=== PATIENT | male | born 1965 | race Caucasian/White ===

== ENCOUNTER 2018-12-12 11:35 | Outpatient (CLI) | payer OTHER ==
[~2018-12-12 11:35] MED LIST: GLIPIZIDE10 MG
== END 2018-12-12 13:44 | disposition home or self-care (01) ==
LOC: EKG 11:35
DX: I10 Essential (primary) hypertension (principal)

== ENCOUNTER 2020-10-25 13:22 | Outpatient (CLI) | payer OTHER | END 2020-10-25 13:27 | disposition home or self-care (01) | LOC: SONOGRAMA 13:22 | PROVIDERS: ATTEND Specialist/Technologist, Other Nephrology | DX: Q61.02 Congenital multiple renal cysts (principal); R10.84 Generalized abdominal pain; R31.29 Other microscopic hematuria ==

== ENCOUNTER 2020-11-18 12:30 | Outpatient (CLI) | payer OTHER | END 2020-11-18 12:33 | disposition home or self-care (01) | LOC: RAD 12:30 | PROVIDERS: ATTEND Ophthalmology | DX: I10 Essential (primary) hypertension (principal); H25.011 Cortical age-related cataract, right eye; Z98.41 Cataract extraction status, right eye ==

== ENCOUNTER 2020-11-18 15:25 | Outpatient (CLI) | payer OTHER | END 2020-11-18 15:29 | disposition home or self-care (01) | LOC: LAB 15:25 | PROVIDERS: ATTEND Specialist | DX: R05 Cough (principal); Z03.818 Encounter for observation for suspected exposure to other biological agents ruled out ==

== ENCOUNTER 2020-12-13 10:26 | Inpatient (IN) | payer OTHER ==
[~2020-12-13] VITALS: Ht 175.3 cm; Wt 79.4 kg
[2020-12-13] MEDS ORDERED: FOLIC ACID1 MG PO (10:45)
[2020-12-13] MEDS ORDERED: SIMVASTATIN20 MG PO (10:45)
[2020-12-13] MEDS ORDERED: ATENOLOL25 MG PO (10:45)
[2020-12-13] MEDS ORDERED: SEMGLEE100 UNIT/1 SUBCUTANEO (10:46)
[2020-12-13] MEDS ORDERED: GABAPENTIN600 MG PO (10:46)
[2020-12-13] MEDS ORDERED: VITAMIN D3250 MCG PO (10:46)
[2020-12-13] MEDS ORDERED: VITAMIN B-121000 MCG PO (10:46)
[2020-12-13] MEDS ORDERED: ADMELOG100 UNIT/1 SQ (10:46)
== END 2020-12-25 20:07 | disposition home or self-care (01) | DRG 256 ==
LOC: ER 10:26 → MEDJ 18:34
PROVIDERS: Specialist; ADMIT Internal Medicine; ATTEND Internal Medicine
PROC: 30233N1 Transfusion of Nonautologous Red Blood Cells into Peripheral Vein, Percutaneous Approach (ICD-10-PCS; 2020-12-14)
PROC: 0Y6T0Z0 Detachment at Right 3rd Toe, Complete, Open Approach (ICD-10-PCS; principal; 2020-12-16 07:00)
DX: E11.52 Type 2 diabetes mellitus with diabetic peripheral angiopathy with gangrene (principal); L97.528 Non-pressure chronic ulcer of other part of left foot with other specified severity; N17.8 Other acute kidney failure; E11.621 Type 2 diabetes mellitus with foot ulcer; I10 Essential (primary) hypertension; E11.42 Type 2 diabetes mellitus with diabetic polyneuropathy; Z20.822 Contact with and (suspected) exposure to COVID-19; E11.65 Type 2 diabetes mellitus with hyperglycemia; J44.9 Chronic obstructive pulmonary disease, unspecified; Z89.422 Acquired absence of other left toe(s); E11.22 Type 2 diabetes mellitus with diabetic chronic kidney disease; N18.32 Chronic kidney disease, stage 3b; Z79.4 Long term (current) use of insulin; D63.1 Anemia in chronic kidney disease

== ENCOUNTER 2021-01-24 12:45 | Outpatient (CLI) | payer OTHER ==
[~2021-01-24 12:45] MED LIST changes: +ADMELOG100 UNIT/1 SQ; +ATENOLOL25 MG PO; +FOLIC ACID1 MG PO; +GABAPENTIN600 MG PO; +SEMGLEE100 UNIT/1 SUBCUTANEO; +SIMVASTATIN20 MG PO; +VITAMIN B-121000 MCG PO; +VITAMIN D3250 MCG PO
== END 2021-01-24 13:00 | disposition home or self-care (01) ==
LOC: WOUND MED 12:45
PROVIDERS: ATTEND Specialist
DX: E11.621 Type 2 diabetes mellitus with foot ulcer (principal); L97.522 Non-pressure chronic ulcer of other part of left foot with fat layer exposed
CPT/HCPCS: 11042; A4554; A4930; A6216; A6219; A6266

== ENCOUNTER 2021-01-27 13:26 | Outpatient (CLI) | payer OTHER | END 2021-01-27 15:08 | disposition home or self-care (01) | LOC: WOUND MED 13:26 | PROVIDERS: ATTEND Specialist | DX: E11.621 Type 2 diabetes mellitus with foot ulcer (principal); L97.522 Non-pressure chronic ulcer of other part of left foot with fat layer exposed | CPT/HCPCS: 97602; A4554; A4930; A6216; A6219; A6266 ==

== ENCOUNTER 2021-01-31 10:19 | Outpatient (CLI) | payer OTHER | END 2021-01-31 11:35 | disposition home or self-care (01) | LOC: WOUND MED 10:19 | PROVIDERS: ATTEND Specialist | DX: E11.621 Type 2 diabetes mellitus with foot ulcer (principal); L97.522 Non-pressure chronic ulcer of other part of left foot with fat layer exposed | CPT/HCPCS: 11042; A4554; A4930; A6216; A6219; A6266 ==

== ENCOUNTER 2021-02-07 11:23 | Outpatient (CLI) | payer OTHER | END 2021-02-07 12:00 | disposition home or self-care (01) | LOC: WOUND MED 11:23 | PROVIDERS: ATTEND Specialist | DX: E11.621 Type 2 diabetes mellitus with foot ulcer (principal); L97.522 Non-pressure chronic ulcer of other part of left foot with fat layer exposed | CPT/HCPCS: 11042; A4554; A4930; A6216; A6219 ==

== ENCOUNTER 2021-02-14 12:08 | Outpatient (CLI) | payer OTHER | END 2021-02-14 13:00 | disposition home or self-care (01) | LOC: WOUND MED 12:08 | PROVIDERS: ATTEND Specialist | DX: E11.621 Type 2 diabetes mellitus with foot ulcer (principal); L97.522 Non-pressure chronic ulcer of other part of left foot with fat layer exposed | CPT/HCPCS: G0463; A4554; A4930; A6216 ==

== ENCOUNTER 2022-02-23 11:50 | Outpatient (CLI) | payer OTHER | END 2022-02-23 11:53 | disposition home or self-care (01) | LOC: EKG 11:50 → LAB 11:50 | PROVIDERS: ATTEND Ophthalmology | DX: H25.012 Cortical age-related cataract, left eye (principal); Z98.42 Cataract extraction status, left eye ==